=== PATIENT | female | born 2005 | race Caucasian/White ===

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

== ENCOUNTER 2025-03-05 14:09 | Outpatient (CLI) | payer OTHER, SELFPAY ==
[2025-03-05 14:29] LABS: Add Urine Microscopic? YES; Glucose Urine UA Trace (Negative); Leukocyte Esterase Ur 2+ LEU/UL (Negative); Nitrate Urine Positive (Negative); Specific Grav Ur 1.025 (1.010-1.020)
[2025-03-05 14:36] LABS: Appearance Urine Sl Cloudy (Clear)
== END 2025-03-05 14:10 | disposition home or self-care (01) ==
LOC: CHSLAB 14:10
PROVIDERS: PCP Nurse Practitioner Family; Visit Provider Nurse Practitioner Family
DX: Z87.898 Personal history of other specified conditions (principal)
CPT/HCPCS: 81001

== ENCOUNTER 2025-03-08 20:51 | Emergency (ER) | payer OTHER, SELFPAY ==
[2025-03-08 20:51] VITALS: BP 128/96; PULSE 104; RESP 18; TEMP 36.6; O2SAT 100
--- NOTE | 2025-03-08 21:01 | ED.FEMALEGU ---
HPI - Female Genitourinary General Chief complaint: Urogenital-Female Stated complaint: UTI Time Seen by Provider: 03/08/25 20:52 Source: patient and family Mode of arrival: ambulatory Limitations: no limitations History of Present Illness HPI Narrative: This is a 19-year-old female that presents with some dysuria and burning with no flank pain no fever chills, patient has been on Macrobid but has been not showing any improvement there is no vaginal discharge no nausea vomiting no diarrhea constipation. MD elicited complaint: dysuria Pertinent past history: recurrent UTIs Onset (ago): day(s) Severity: moderate Related Data Home Medications ?Medication ?Instructions ?Recorded ?Confirmed ?Last Taken ?Type duloxetine 60 mg capsule,delayed mg PO 12/09/23 11/01/24 Unknown History release Allergies Allergy/AdvReac Type Severity Reaction Status Date / Time No Known Allergies Allergy Verified 03/08/25 21:08 Review of Systems Review of Systems: All systems reviewed & are unremarkable except as noted in HPI and below PMFSH Past Medical History Medical History Patient denies medical problems Family History Family History Father Diabetes mellitus Hypertension Depression ADHD Mother ADHD Depression Anxiety Social History Social History Smoking status: Never smoker Alcohol intake: never Substance use: never Do You Feel Safe in your Home?: Yes Lack of Transportation: No Lack of Food: Never True Current Housing: I Have Housing Concerned About Future Housing: No Difficulty Paying Gas/Electric Bills: No Difficulty Paying for Meds: No Currently Unemployed: No Education: High School Diploma/GED Difficulty w/ Childcare or Family Care: No Exam Const: General: healthy appearing and no acute distress Nutritional Appearance: well nourished Orientation/consciousness: patient oriented x3 Limitations: no limitations Chest: Chest palpation & inspection: normal inspection of the chest Resp: Effort & Inspection: normal respiratory effort Auscultation: clear to auscultation bilaterally Cardio: Rate: regular rate Rhythm: regular rhythm GI: GI Palp: Yes Soft to palpation and Yes Tenderness to palpation present (GI) : General: Yes no CVA tenderness Other: suprapubic tenderness palpation Urinary Catheter: Urinary Catheter: patent and draining Back/Spine/Pelvis: Back: CVA tenderness Skin: General skin exam: normal color Course Course Emergency Course: patient received 1g ceftriaxone IM, UA performed and sent for culture. Vital Signs Vital signs: Vital Signs Temperature 36.6 C 03/08/25 20:51 Pulse Rate 104 H 03/08/25 20:51 Respiratory Rate 18 03/08/25 20:51 Blood Pressure 128/96 H 03/08/25 20:51 Pulse Oximetry 100 03/08/25 20:51 Oxygen Delivery Room Air 03/08/25 20:51 Temperature 36.6 C 03/08/25 20:51 Pulse Rate 104 H 03/08/25 20:51 Respiratory Rate 18 03/08/25 20:51 Blood Pressure 128/96 H 03/08/25 20:51 Pulse Oximetry 100 03/08/25 20:51 Oxygen Delivery Room Air 03/08/25 20:51 Critical Care Time Critical Care Time Critical Care Time: No Discharge Plan Discharge Clinical Impression: UTI (urinary tract infection) Qualifiers: Urinary tract infection type: acute cystitis Hematuria presence: without hematuria Qualified Code(s): N30.00 - Acute cystitis without hematuria Patient Disposition: Home Condition: Stable Instructions: Antibiotic Form, Urinary Tract Infection in Women (ED) Additional Instructions: advised to take medication as prescribed and follow with primary care physician if symptoms persist or worsen. Patient Language: Nepalese Prescriptions: New ciprofloxacin HCl 500 mg tablet 500 mg PO Q12H Qty: 14 0RF phenazopyridine [Pyridium] 200 mg tablet 200 mg PO TID 3 Days Qty: 9 0RF No Action duloxetine 60 mg capsule,delayed release(DR/EC) PO buspirone 10 mg tablet 10 mg PO BID Qty: 90 3RF nitrofurantoin monohyd/m-cryst [Macrobid] 100 mg capsule 100 mg PO Q12H 5 Days Qty: 10 0RF Rx Instructions: must administer with a meal/food Follow-up/Referrals: Ailyn Mishra NP [Primary Care Provider] - Time of Disposition: 21:09
[2025-03-08 21:08] LABS: Glucose Urine UA 1+ (Negative); Leukocyte Esterase Ur 2+ LEU/UL (Negative); Nitrate Urine Positive (Negative); Specific Grav Ur 1.025 (1.010-1.020)
[2025-03-08 21:13] LABS: Add Urine Microscopic? YES; Appearance Urine Sl Cloudy (Clear)
[2025-03-08] MEDS: cefTRIAXone 1 GM, LIDOCAINE 1% LOCAL INJ 2.1 ML IM (21:21)
[2025-03-08 21:40] VITALS: BP 124/86; PULSE 88; RESP 18; O2SAT 100
--- NOTE | 2025-03-08 22:30 | PC.NURSE ---
PATIENT RETURNED TO ROOM. REPORTS THAT PAIN MEDICATION IS STARTING TO HELP. STARTING TO REST ON STRETCHER. IV FLUIDS INFUSING TO LEFT ARM WITHOUT REDNESS OR SWELLING.
--- NOTE | 2025-03-11 12:29 | PC.NURSE ---
Final urine culture report; no growth.
== END 2025-03-08 21:40 | disposition home or self-care (01) ==
LOC: CHSED 21:08
PROVIDERS: Emergency Provider Emergency Medicine; PCP Nurse Practitioner Family
DX: N30.00 Acute cystitis without hematuria (principal)
CPT/HCPCS: 81001; 87086; 96372; 99283; J0696; J2003

== ENCOUNTER 2025-03-25 10:52 | Outpatient (CLI) | payer OTHER, SELFPAY ==
[2025-03-25 11:12] LABS: Hematocrit 42.5 % (35.0-49.0); Hemoglobin 13.9 g/dL (12.0-15.0); Immature Granulocyte Percent A 0.2 % (0.0-0.0); Lymphocytes Absolute Auto 1.56 K/mm3 (1.10-4.50); Mean Corpuscular HGB Conc 32.7 g/dL (32-36); Mean Corpuscular Hemoglobin 30.0 pg (27.0-31.0); Mean Corpuscular Volume 91.8 fL (78.0-102.0); Nucleated Red Blood Cells Absolute Auto 0.00 K/mm3 (0.00-0.00); Nucleated Red Blood Cells Perc 0.0 % (0-0.0); Platelet Count Result 286 K/mm3 (150-420); Red Blood Count 4.63 M/mm3 (4.20-5.40); White Blood Count 5.1 K/mm3 (4.8-10.8)
[2025-03-25 11:17] LABS: Add Urine Microscopic? YES; Appearance Urine Sl Cloudy (Clear); Glucose Urine UA Negative (Negative); Leukocyte Esterase Ur 2+ LEU/UL (Negative); Nitrate Urine Negative (Negative); Specific Grav Ur 1.015 (1.010-1.020)
[2025-03-25 12:18] LABS: Alanine Aminotransferase 19 U/L (6-35); Albumin Level 4.4 g/dL (3.7-5.6); Alkaline Phosphatase 65 U/L (45-116); Anion Gap 4 mmol/L (4-12); Aspartate Amino Transferase 27 U/L (14-36); Bilirubin,Total 1.5 mg/dL (0.2-1.3); Blood Urea Nitrogen 10 mg/dL (8-21); Calcium 9.2 mg/dL (8.9-10.7); Carbon Dioxide 25 mmol/L (22-30); Chloride 109 mmol/L (98-107); Estimated Glomerular Filt Rate > 60; Glucose 78 mg/dL (65-110); Osmolality Calculated 284 mOsm/kg (285-295); Potassium 4.6 mmol/L (3.4-5.0); Sodium 138 mmol/L (134-143); Total Protein 6.5 g/dL (6.3-8.6)
[2025-03-26 08:07] LABS: Trichomonas Vag PCR NOT DETECTED (NOT DETECTE)
== END 2025-03-25 10:53 | disposition home or self-care (01) ==
PROVIDERS: PCP Nurse Practitioner Family; Visit Provider Nurse Practitioner Family
DX: Z11.3 Encounter for screening for infections with a predominantly sexual mode of transmission (principal); Z83.2 Family history of diseases of the blood and blood-forming organs and certain disorders involving the immune mechanism; Z87.898 Personal history of other specified conditions; R10.9 Unspecified abdominal pain; Z82.49 Family history of ischemic heart disease and other diseases of the circulatory system
CPT/HCPCS: 36415; 80053; 81001; 81240; 81241; 81291; 85025; 87086; 87101; 87491; 87591; 87661; 87798

== ENCOUNTER 2025-06-25 09:00 | Outpatient (RCR) | payer BC, OTHER, SELFPAY ==
--- NOTE | 2025-05-19 15:18 | OPREHPOC ---
Outpatient Therapy Plan of Care This is a Multidisciplinary Plan of Care that may contain components documented by all disciplines (PT, OT, and ST.) PT Problem 1 PT Problem #1 Knowledge Deficit PT Goal 1 Goal / Goal Update 1. Patient will perform independent HEP Target Visit 3 PT Problem 2 PT Problem #2 Pain PT Goal 1 Goal / Goal Update 1. No pain with pelvic floor palpation to allow for tampon use and full medical management including pelvic ultrasounds, pap smears, etc. 2. No pain with urination for at least 2 weeks Target Visit 5 PT Problem 3 PT Problem #3 Impaired Functional ADLs PT Goal 1 Goal / Goal Update 1. Patient will void no more than 8 times a day 2. Patient will be able to hold at least 30 minutes before needing to void Target Visit 5
--- NOTE | 2025-05-19 15:18 | PTOPEVAL1 ---
Assessment and note entered by Yoon Tomas DPT Evaluation Information Assessment Status Evaluation ICD-10 Condition Codes (PT) Weakness R53.1,Pelvic and perineal pain R10.2 Subjective Information Pt reports a history of UTI like symptoms but her urine cultures have been negative. Highest recent pain 8-9/10 and lowest 0/10. Also had back pain with it and her kidneys have also been cleared. Reports urinary frequency and like she always has to pee. Feels that her urethra is swollen. Voiding 10-12 times a day currently, wakes up 1-2 times a night. Can hold urge to void up to 20-30 minutes and will get pain if holding too long. Does get occasional incontinence when she has UTI symptoms. BM 2 times a day to every 2 days. Pt reports pain with tampon use and cannot use them, pain and bleeding with intercourse and has had pain with a pelvic ultrasound before. No other EVALUATION ADVISOR history. Patient goal: get rid of feeling of having a UTI frequently Returns to MD in June. Reported Pain Level Pain Score 0: Self Report Assessment PT Clinical Summary The patient is presenting to skilled therapy with a several year history of pelvic pain. She presents with increased pelvic floor muscle tone and difficulty relaxing after contraction, in addition to decreased hip and abdominal strength. These impairments are contributing to her pain and difficulty with urination and tolerating tampon use. She also reports increased urinary frequency and urgency. She will highly benefit from therapy to address these impairments in order to reduce pain, normalize urinary frequency, and restore full function. Plan of Care Interventions Electrical Stimulation,Hot Pack/Cold Pack,Manual Therapy,Neuro Re-education,Patient/Caregiver Education,Therapeutic Activities,Therapeutic Exercise PT Services Indicated Yes Treatment Frequency and 1 time a week for 5 visits Duration These treatments will address the objective and functional deficits as defined above. The patient will be advanced safely and appropriately in order for the patient to progress towards his/her prior level of function. Additional exercises will be introduced and as well as a comprehensive home exercise program upon discharge, if needed, ?to ensure carryover of functional gains achieved in the clinic. This treatment plan has been reviewed and agreement upon by the patient.
--- NOTE | 2025-06-11 08:27 | PCPTNOTE ---
Patient cancelled appointment 06/11/25 due to having the flu.
--- NOTE | 2025-08-07 09:52 | PTOPDC ---
Assessment and note entered by Yoon Tomas DPChirag Evaluation Information Assessment Status Discharge - Pt Not Present ICD-10 Condition Codes (PT) Weakness R53.1,Pelvic and perineal pain R10.2 Subjective Information - Assessment PT Clinical Summary Patient has not attended therapy since 06/25/25. Her case will be discharged at this time. Plan of Care PT Services Indicated No
== END 2025-08-07 14:36 | disposition home or self-care (01) ==
LOC: ANHGOSHPT 09:00
PROVIDERS: PCP Nurse Practitioner Family; Visit Provider Physician Assistant
DX: M62.89 Other specified disorders of muscle (principal)
CPT/HCPCS: 97110; 97112; 97140; 97161; 97530

== ENCOUNTER 2025-07-10 11:58 | Outpatient (CLI) | payer BC, SELFPAY ==
--- OUTSIDE RECORDS SUMMARY | 2025-07-10 12:53 | XMS_ITS | Clinical Summary ---
Author Organization [facility] Address [address] [place] [address] Care Team Providers Care Mushroom Sorter Grader Name Role Phone Unavailable Primary Care Provider Unavailabl e Social History Tobacco Use Types Packs/Day Years Used Date Smoking Tobacco: Never Assessed Comments Unknown Sex and Gender Information Value Date Recorded Sex Assigned at Not on file Legal Sex Female 3:14 PM CDT Gender Identity Not on file Sexual Orientation Not on file Plan of Treatment Upcoming Encounters Date Type Department Care Team (Late st Contact Info) Description 08/18/2025 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
[2025-07-11 18:08] LABS: ANA by IFA Rfx Titer/Pattern Positive (.)
== END 2025-07-10 11:59 | disposition home or self-care (01) ==
LOC: CHSLAB 11:59
PROVIDERS: PCP Nurse Practitioner Family; Visit Provider Nurse Practitioner Family
DX: R53.82 Chronic fatigue, unspecified (principal)
CPT/HCPCS: 36415; 83090; 85652; 86038; 86430